=== PATIENT | male | born 1965 | race Caucasian/White ===

== ENCOUNTER 2019-07-18 08:07 | Day surgery (SDC) | payer OTHER ==
[~2019-07-18] VITALS: Wt 108.0 kg
[~2019-07-18 08:07] MED LIST: ALPR.5 PO; AMPDEX30CR PO; ASPI81CH PO; ATOR40TA; FISH1000 PO; IBUP800 PO; INSDET100; MOXI400 PO; OXYACE5T PO; PRAV20 PO; Synthroid/Levo0.2 MG PO; TRESIBA FL200 UNIT/1
--- NOTE | 2019-07-18 08:58 | NUR ---
TO CT AT 0845.
--- NOTE | 2019-07-18 08:59 | NUR ---
HR 58. REPORTS BYSTOLIC THIS AM.
--- NOTE | 2019-07-18 09:06 | NUR ---
0.4 NITRO GIVEN PO FOR EXAM
== END 2019-07-18 23:01 | disposition home or self-care (01) ==
LOC: CT 08:07 → ORD 08:07 → CT 09:00
DX: R07.89 Other chest pain (principal); R94.30 Abnormal result of cardiovascular function study, unspecified; I10 Essential (primary) hypertension; I25.10 Atherosclerotic heart disease of native coronary artery without angina pectoris; E78.5 Hyperlipidemia, unspecified; E11.9 Type 2 diabetes mellitus without complications; E03.9 Hypothyroidism, unspecified; E66.9 Obesity, unspecified; Z68.31 Body mass index [BMI] 31.0-31.9, adult; Z79.82 Long term (current) use of aspirin; Z79.84 Long term (current) use of oral hypoglycemic drugs; Z79.899 Other long term (current) drug therapy; Z87.891 Personal history of nicotine dependence
CPT/HCPCS: 75574; Q9967

== ENCOUNTER 2020-07-25 10:48 | Day surgery (SDC) | payer OTHER ==
[~2020-07-25] VITALS: Ht 185.4 cm; Wt 109.1 kg
[~2020-07-25 10:48] MED LIST changes: +Alprazolam0.5 MG PO; +Crestor20 MG PO; +GLUCOPHAGE1000 M2 PO; +LEVO T PO; +NEBI5 PO; +OMEGA-3 FISH O1 EAC5 PO; +OMEP20ER PO; +TRESIBA FL100 UNIT/2
[2020-07-25] MEDS ORDERED: ASPI325 (11:30)
== END 2020-07-25 13:15 | disposition home or self-care (01) ==
LOC: ORSCSDS 10:48
PROVIDERS: Internal Medicine Gastroenterology
PROC: 0DBL8ZX Excision of Transverse Colon, Via Natural or Artificial Opening Endoscopic, Diagnostic (ICD-10-PCS; principal; 2020-07-25 12:15)
DX: Z12.11 Encounter for screening for malignant neoplasm of colon (principal); D12.3 Benign neoplasm of transverse colon; K64.8 Other hemorrhoids; Z86.010 Personal history of colon polyps; G47.33 Obstructive sleep apnea (adult) (pediatric); E03.9 Hypothyroidism, unspecified; E11.9 Type 2 diabetes mellitus without complications; E78.5 Hyperlipidemia, unspecified; E88.81 Metabolic syndrome and other insulin resistance; F41.9 Anxiety disorder, unspecified; Z79.82 Long term (current) use of aspirin; Z79.84 Long term (current) use of oral hypoglycemic drugs; Z79.899 Other long term (current) drug therapy; F17.210 Nicotine dependence, cigarettes, uncomplicated
CPT/HCPCS: 82947; 88305; J2704; J7120